=== PATIENT | female | born 1980 | race Two or more races ===

== ENCOUNTER → 2017-03-13 | Outpatient (CLI) | payer BC ==
[~2017-03-13] MED LIST: ACET325; CYCL10 PO; HYDACE5325 PO; HYDR1TAB94 PO; NAPR500 PO; NEXPLANON68 MG; Norco 5-325 Ta1 EACH PO
== END ==
LOC: PLD 13:29
DX: R19.09 Other intra-abdominal and pelvic swelling, mass and lump (principal)
CPT/HCPCS: 88108

== ENCOUNTER → 2018-03-11 | Outpatient (CLI) | payer BC ==
[2018-03-11 14:39] LABS: Candida species (DNA Probe) Negative (NEGATIVE); G. vaginalis (DNA Probe) Negative (NEGATIVE); T. vaginalis (DNA Probe) Negative (NEGATIVE)
[2018-03-13 11:08] LABS: CHLAMYDIA TRACHOMATIS, NAA Negative (Negative); NEISSERIA GONORRHOEAE, NAA Negative (Negative)
== END | disposition home or self-care (01) ==
LOC: LAB 10:48 → LAB SHORT 10:48
PROVIDERS: Obstetrics & Gynecology
DX: Z11.3 Encounter for screening for infections with a predominantly sexual mode of transmission (principal); N76.0 Acute vaginitis
CPT/HCPCS: 87480; 87491; 87510; 87591; 87660

== ENCOUNTER 2019-01-02 23:01 | Emergency (ER) | payer BC, SELFPAY ==
[~2019-01-02] VITALS: Ht 157.5 cm; Wt 44.5 kg
[2019-01-02] MEDS ORDERED: PRAM.125 PO (23:33)
== END 2019-01-02 23:48 | disposition home or self-care (01) ==
LOC: ER 23:01
DX: G25.81 Restless legs syndrome (principal); Z85.51 Personal history of malignant neoplasm of bladder; Z87.891 Personal history of nicotine dependence; Z88.5 Allergy status to narcotic agent; Z79.899 Other long term (current) drug therapy
CPT/HCPCS: 99283

== ENCOUNTER 2019-06-01 08:01 | Emergency (ER) | payer BC ==
[~2019-06-01] VITALS: Ht 152.4 cm; Wt 44.5 kg
[~2019-06-01 08:01] MED LIST changes: +PRAM.125 PO
[2019-06-01] MEDS ORDERED: IBUP200 (08:14)
[2019-06-01] MEDS ORDERED: CEPH500 PO (09:35)
== END 2019-06-01 11:43 | disposition home or self-care (01) ==
LOC: ER 08:01
DX: S66.321A Laceration of extensor muscle, fascia and tendon of left index finger at wrist and hand level, initial encounter (principal); F41.8 Other specified anxiety disorders; Z23 Encounter for immunization; Z88.5 Allergy status to narcotic agent; Z87.891 Personal history of nicotine dependence; W45.8XXA Other foreign body or object entering through skin, initial encounter; Y93.G3 Activity, cooking and baking
CPT/HCPCS: 12042; 29125; 90471; 90714; 99282-25

== ENCOUNTER → 2020-12-07 | Outpatient (CLI) | payer BC ==
[~2020-12-07] MED LIST changes: +CEPH500 PO; +IBUP200
[2020-12-08 17:10] LABS: HPV 16 Negative (Negative); HPV 18 Negative (Negative); HPV OTHER HR TYPES Negative (Negative)
== END ==
LOC: LAB SHORT 12:15 → LAB 12:15
PROVIDERS: Registered Nurse Community Health
DX: Z12.4 Encounter for screening for malignant neoplasm of cervix (principal)
CPT/HCPCS: 87624; G0123

== ENCOUNTER → 2021-01-18 | Outpatient (CLI) | payer BC ==
[2021-01-18 19:50] LABS: BASOPHILS ABSOLUTE AUTO 0.03 K/mm3 (0.00-0.23); BASOPHILS PERCENT AUTO 0 % (0-2); EOSINOPHILS ABSOLUTE AUTO 0.03 K/mm3 (0.00-0.68); EOSINOPHILS PERCENT AUTO 0 % (0-6); Hematocrit 40.1 % (33.0-51.0); Hemoglobin 13.2 g/dL (11.5-16.0); IMMATURE GRAN ABSOLUTE AUTO 0.03 K/mm3 (0.00-0.10); IMMATURE GRAN PERCENT AUTO 0 % (0-1); LYMPHOCYTES ABSOLUTE AUTO 2.61 K/mm3 (0.84-5.20); LYMPHOCYTES PERCENT AUTO 37 % (21-46); MONOCYTES PERCENT AUTO 7 % (4-13); Mean Corpuscular HGB 30.1 pg (26.0-34.0); Mean Corpuscular HGB Conc 32.9 g/dL (31.5-36.5); Mean Corpuscular Volume 92 fL (80-100); Mean Platelet Volume 12.3 fL (9.1-12.4); NEUTROPHILS ABSOLUTE AUTO 3.85 K/mm3 (1.96-9.15); NEUTROPHILS PERCENT AUTO 55 % (41-73); Platelet Count 180 K/mm3 (150-400); RDW Coefficient Variation 12.9 % (11.7-14.2); RDW Standard Deviation 43.1 fL (35.1-46.3); Red Blood Cell Count 4.38 M/mm3 (3.80-5.20); White Blood Cell Count 7.05 K/mm3 (4.00-11.30)
== END ==
LOC: LAB SHORT 18:57 → LAB 18:57
PROVIDERS: Nurse Practitioner
DX: N93.9 Abnormal uterine and vaginal bleeding, unspecified (principal); Z88.5 Allergy status to narcotic agent
CPT/HCPCS: 85025

== ENCOUNTER → 2021-12-19 | Outpatient (CLI) | payer OTHER ==
[2021-12-21 17:11] LABS: HPV 16 Negative (Negative); HPV 18 Negative (Negative); HPV OTHER HR TYPES Negative (Negative)
== END | disposition home or self-care (01) ==
LOC: LAB SHORT 13:17 → LAB 13:17
PROVIDERS: Registered Nurse Community Health
DX: Z12.4 Encounter for screening for malignant neoplasm of cervix (principal)
CPT/HCPCS: 87624; G0123

== ENCOUNTER 2022-07-14 08:32 | Day surgery (SDC) | payer OTHER ==
[~2022-07-14] VITALS: Ht 142.2 cm; Wt 52.0 kg
[2022-07-14] VITALS (9 sets, daily range): BP systolic 114–133; BP diastolic 72–91
--- NOTE | 2022-07-14 10:16 | NUR ---
Ambulatory in Day Surgery. Pre-Op teaching done. Pt verbalizes understanding. Patient confirms NPO status and agrees with scheduled surgery. Lungs clear T/O to Auscultation. Patient States Post-Procedure ride home has been arranged. NEUROPSYCHIATRIC AIDE PHONE UTILIZED THOUGHOUT ADMISSION; NEUROPSYCHIATRIC AIDE ID # [id number]. PT CALM & COOPERATIVE, DENIES NEEDS AT THIS TIME.
--- NOTE | 2022-07-14 13:53 | NUR ---
DISCHARGE NOTE PT A&OX4, VSS, BREATHING RA, SLIGHT CRAMPING IN ABDOMEN, PO PAIN PILLS GIVEN. SCANT AMOUNT OF BLOODY VAGINAL DRAINAGE, LAP SITES TO ABDOMEN ARE CDI. DISCHARGE INSTRUCTIONS GIVEN IN [place] AND [place], PT VERBALIZED UNDERSTANDING. PT NOT DISCHARGED WITH RX FOR AT HOME, PT COMMUNICATED SHE ALREADY HAS SOME PROVIDED BY DR NOLAND AT HOME. PT DRESSED INDEPENDENTLY C RN AT BEDSIDE. Discharge instructions reviewed with patient. Patient verbalizes understanding. Copy given to patient to take home. Dressing to procedure site clean, dry, intact with no visible drainage, swelling, erythema or bruising noted. Discharged via wheelchair to private car for ride home.
== END 2022-07-14 13:50 | disposition home or self-care (01) ==
LOC: ORSCMMR 08:32 → ORD 10:00 → ORSCMMR 10:00
PROVIDERS: Obstetrics & Gynecology
PROC: 0UT7FZZ Resection of Bilateral Fallopian Tubes, Via Natural or Artificial Opening With Percutaneous Endoscopic Assistance (ICD-10-PCS; principal; 2022-07-14 10:00)
DX: Z30.2 Encounter for sterilization (principal)
CPT/HCPCS: 84702; 88302; A9270; J0330; J0690; J1100; J1885; J2250; J2405; J2704; J2795; J3010; J7120

== ENCOUNTER 2023-01-19 05:45 | Day surgery (SDC) | payer OTHER ==
[2023-01-17 15:46] LABS: BASOPHILS ABSOLUTE AUTO 0.02 K/mm3 (0.00-0.23); BASOPHILS PERCENT AUTO 1 % (0-2); EOSINOPHILS PERCENT AUTO 2 % (0-6); Hematocrit 36.6 % (33.0-51.0); Hemoglobin 12.4 g/dL (11.5-16.0); IMMATURE GRAN ABSOLUTE AUTO 0.01 K/mm3 (0.00-0.10); IMMATURE GRAN PERCENT AUTO 0 % (0-1); LYMPHOCYTES ABSOLUTE AUTO 1.27 K/mm3 (0.84-5.20); LYMPHOCYTES PERCENT AUTO 29 % (21-46); MONOCYTES ABSOLUTE AUTO 0.59 K/mm3 (0.16-1.47); MONOCYTES PERCENT AUTO 14 % (4-13); Mean Corpuscular HGB 30.6 pg (26.0-34.0); Mean Corpuscular HGB Conc 33.9 g/dL (31.5-36.5); Mean Corpuscular Volume 90 fL (80-100); Mean Platelet Volume 12.1 fL (9.1-12.4); NEUTROPHILS ABSOLUTE AUTO 2.38 K/mm3 (1.96-9.15); NEUTROPHILS PERCENT AUTO 54 % (41-73); Platelet Count 241 K/mm3 (150-400); RDW Coefficient Variation 13.3 % (11.7-14.2); RDW Standard Deviation 43.9 fL (35.1-46.3); Red Blood Cell Count 4.05 M/mm3 (3.80-5.20); White Blood Cell Count 4.37 K/mm3 (4.00-11.30)
[2023-01-19] VITALS (19 sets, daily range): BP systolic 111–151; BP diastolic 71–98
[~2023-01-19] VITALS: Ht 147.3 cm; Wt 55.9 kg
--- NOTE | 2023-01-19 06:46 | NUR ---
Ambulatory in Day Surgery History, Chart, Medications and Allergies reviewed before start of procedure.Pt speaks [place]ian as second language. Pt requested that her friend Jhonny assist with the admission process. Authorization for medical information signed by pt. Lungs clear T/O to Auscultation.Pt reports nasal congestion and mild cough over the past couple of days. Pt is afebrile and vs WDL.Patient reports completing Chlorhexadine shower X2 prior to admission to hospital.Surgical site prepped with 2% Chlorhexidine cloth wipe. Patient States Post-Procedure ride home has been arranged.
--- NOTE | 2023-01-19 11:39 | NUR ---
01/19/[address] INJECTED 25ML OF BUPIVACAINE 0.5% W/EPI AT 1000 TO OPSITE.
--- NOTE | 2023-01-19 17:42 | NUR ---
POST OP: REPORT RECEIVED FROM [employer] MANAGERPAULIE CHAMBERS. PT TO UNIT AT ABOUT 1120. PT IS A/O, VSS. SURGICAL SITES WNL. NO BLEED NOTED AT MEHRDAD PAD. PT ABLE TO TRANSFER SELF FROM GURNEY TO BED. PT REPORTS PAIN TOLERABLE WHEN SHE IS AT REST. PT ORIENTED TO ROOM AND CALL LIGHT. DENIES ANY SMOKING OR IGNITION SOURCES. PT FAMILY AT BEDSIDE. PT INSTRUCTED TO CALL STAFF IF NEEDS TO GET OOB, PT VERBALZIED UNDERSTANDING. CALL LIGHT IN REACH.
--- NOTE | 2023-01-19 17:47 | NUR ---
SUMMARY: PT HAS DONE WELL POST OP, A/O, VSS. PAIN APPEARS TO BE MANAGED WITH 2 OXY AND 0.5 DILAUDID FOR BREAK THROUGH. PT ABLE TO AMBULATE IN ROOM AND SIT IN CHAIR FOR A LITTLE. OSVALDO MEMBRENO'D AT ABOUT 1700, AWAITING VOID. PT ABLE TO EAT DINNER. ABD BINDER IN PLACE, INCISIONS WNL.
[2023-01-20 04:14] VITALS: BP 120/72
[2023-01-20 04:39] LABS: BASOPHILS ABSOLUTE AUTO 0.02 K/mm3 (0.00-0.23); BASOPHILS PERCENT AUTO 0 % (0-2); EOSINOPHILS ABSOLUTE AUTO 0.01 K/mm3 (0.00-0.68); EOSINOPHILS PERCENT AUTO 0 % (0-6); Hematocrit 33.7 % (33.0-51.0); Hemoglobin 11.3 g/dL (11.5-16.0); IMMATURE GRAN ABSOLUTE AUTO 0.04 K/mm3 (0.00-0.10); IMMATURE GRAN PERCENT AUTO 0 % (0-1); LYMPHOCYTES ABSOLUTE AUTO 1.75 K/mm3 (0.84-5.20); LYMPHOCYTES PERCENT AUTO 18 % (21-46); MONOCYTES ABSOLUTE AUTO 0.92 K/mm3 (0.16-1.47); MONOCYTES PERCENT AUTO 9 % (4-13); Mean Corpuscular HGB 30.3 pg (26.0-34.0); Mean Corpuscular HGB Conc 33.5 g/dL (31.5-36.5); Mean Corpuscular Volume 90 fL (80-100); Mean Platelet Volume 11.7 fL (9.1-12.4); NEUTROPHILS ABSOLUTE AUTO 7.07 K/mm3 (1.96-9.15); NEUTROPHILS PERCENT AUTO 72 % (41-73); Platelet Count 242 K/mm3 (150-400); RDW Coefficient Variation 13.2 % (11.7-14.2); RDW Standard Deviation 43.8 fL (35.1-46.3); Red Blood Cell Count 3.73 M/mm3 (3.80-5.20); White Blood Cell Count 9.81 K/mm3 (4.00-11.30)
--- NOTE | 2023-01-20 05:07 | NUR ---
SHIFT SUMMARY NOC. PT POD 1 FOR LAP HYSTERECTOMY. PT'S 4 LAP SITES ARE C/D/I. PT HAS HAD 2 VOMIT EPISODES THIS SHIFT, SX IMPROVED WITH ZOFRAN. PT AMBULATING IN THE ROOM. PT HAS BEEN PAINFUL THIS SHIFT 8/10 PAIN. PT REPORTS PERCOCET INCREASES HER NAUSEA. MEDICATED WITH DILAUDID X2 WITH RELIEF. PT VOIDING URINE. PT RESTED WITH EYES CLOSED AND CALL LIGHT IN REACH.
[2023-01-20 07:04] VITALS: BP 100/65
[2023-01-20] MEDS ORDERED: ESTRADIOL1 MG PO (14:12)
[2023-01-20] MEDS ORDERED: HYDMOR2 PO (14:13)
[2023-01-20] MEDS ORDERED: IBUP400 PO (14:14)
[2023-01-20] MEDS ORDERED: PROM25 PO (14:15)
[2023-01-20] MEDS ORDERED: SIME80CH PO (14:15)
[2023-01-20 14:26] VITALS: BP 138/83
--- NOTE | 2023-01-20 14:46 | NUR ---
discharged PT TOLERATED PO PAIN MEDS AND REPORTED RELIEF. VSS. TOLERATING PO AND VOIDING. DC'D HOME. REVIEWED DC INSTRUCTIONS W/PT; VERBALIZED UNDERSTANDING. IV DC'D, CATHETER INTACT. VSS. PT LEFT UNIT IN WC W/POSSESSIONS AND DC PAPERWORK IN HAND, ACCOMPANIED BY FAMILY AND FRIENDS TO RIDE WAITING OUTSIDE.
== END 2023-01-20 14:37 | disposition home or self-care (01) ==
LOC: ORSCMMR 05:45 → ORD 07:30 → ORSCMMR 07:30 → SURS 11:01 → ORSCMMR 01-20 14:37
PROVIDERS: Obstetrics & Gynecology
PROC: 0U5F4ZZ Destruction of Cul-de-sac, Percutaneous Endoscopic Approach (ICD-10-PCS; principal; 2023-01-19 07:30)
PROC: 0UT9FZZ Resection of Uterus, Via Natural or Artificial Opening With Percutaneous Endoscopic Assistance (ICD-10-PCS; principal; 2023-01-19 07:30)
PROC: 0UT2FZZ Resection of Bilateral Ovaries, Via Natural or Artificial Opening With Percutaneous Endoscopic Assistance (ICD-10-PCS; principal; 2023-01-19 07:30)
DX: N92.1 Excessive and frequent menstruation with irregular cycle (principal); N80.9 Endometriosis, unspecified; N83.12 Corpus luteum cyst of left ovary; N94.6 Dysmenorrhea, unspecified; N94.10 Unspecified dyspareunia; R10.2 Pelvic and perineal pain; N80.03 Adenomyosis of the uterus
CPT/HCPCS: 36415; 85025; 86850; 86900; 86901; 88305; 88307; 94762; A9270; J0690; J1100; J1170; J1885; J2250; J2405; J2704; J3010; J7050; J7120

== ENCOUNTER → 2024-01-09 | Outpatient (CLI) | payer OTHER ==
[~2024-01-09] MED LIST changes: +ESTRADIOL1 MG PO; +HYDMOR2 PO; +IBUP400 PO; +LIDOCAINE1 EACH TOP; +PROM25 PO; +Robaxin750 MG PO; +SIME80CH PO
[2024-01-09 18:41] LABS: CHOL/HDL RATIO 2.8; Cholesterol 243 mg/dL (50-200); HDL Cholesterol 88 mg/dL (>39); LDL/HDL RATIO 1.3; Low Density Lipoprotein Chol 113 mg/dL (0-110); Triglycerides 212 mg/dL (30-160); Very Low Density Lipoprot Chol 42 mg/dL (6-32)
[2024-01-11 10:02] LABS: HEPATITIS C AB CIA INTERP Negative (Negative); HEPATITIS C ANTIBODY CIA INDEX 0.32 IV
== END ==
LOC: LAB SHORT 13:16 → LAB 13:16
PROVIDERS: Family Medicine
DX: Z13.6 Encounter for screening for cardiovascular disorders (principal); Z11.59 Encounter for screening for other viral diseases
CPT/HCPCS: 80061; 86803

== ENCOUNTER 2024-07-08 14:13 | Emergency (ER) | payer OTHER ==
[~2024-07-08] VITALS: Ht 152.4 cm; Wt 58.1 kg
[2024-07-08 14:27] VITALS: BP 136/103
[2024-07-08 14:49] LABS: BASOPHILS ABSOLUTE AUTO 0.02 K/mm3 (0.00-0.23); BASOPHILS PERCENT AUTO 0 % (0-2); EOSINOPHILS ABSOLUTE AUTO 0.04 K/mm3 (0.00-0.68); EOSINOPHILS PERCENT AUTO 1 % (0-6); Hematocrit 40.8 % (33.0-51.0); Hemoglobin 13.3 g/dL (11.5-16.0); IMMATURE GRAN ABSOLUTE AUTO 0.01 K/mm3 (0.00-0.10); IMMATURE GRAN PERCENT AUTO 0 % (0-1); LYMPHOCYTES ABSOLUTE AUTO 2.18 K/mm3 (0.84-5.20); LYMPHOCYTES PERCENT AUTO 40 % (21-46); MONOCYTES PERCENT AUTO 11 % (4-13); Mean Corpuscular HGB Conc 32.6 g/dL (31.5-36.5); Mean Corpuscular Volume 92 fL (80-100); Mean Platelet Volume 11.1 fL (9.1-12.4); NEUTROPHILS ABSOLUTE AUTO 2.57 K/mm3 (1.96-9.15); NEUTROPHILS PERCENT AUTO 47 % (41-73); Platelet Count 247 K/mm3 (150-400); RDW Coefficient Variation 14.1 % (11.7-14.2); RDW Standard Deviation 47.8 fL (35.1-46.3); Red Blood Cell Count 4.43 M/mm3 (3.80-5.20); White Blood Cell Count 5.42 K/mm3 (4.00-11.30)
[2024-07-08 15:32] LABS: Albumin, Blood 4.2 g/dL (3.4-5.0); Bilirubin, Total 0.2 mg/dL (0.1-1.0); Bun/Creatinine Ratio 15.9 (12.0-20.0); Calcium, Blood 8.6 mg/dL (8.5-10.1); Creatinine, Blood 0.63 mg/dL (0.40-1.00); Globulin, Blood 4.1 g/dL (2.2-4.0); Potassium, Blood 3.4 mmol/L (3.5-5.5); Total Protein, Blood 8.3 g/dL (6.4-8.2)
[2024-07-08 16:14] LABS: Source, Urine Clean Catch
[2024-07-08 16:19] LABS: Bilirubin, Urine Neg (Neg); Blood, Urine Neg (Neg); Color, Urine Yellow (P-Yellow); Glucose Qualitative, Urine Neg (Neg); Ketones, Urine Neg (Neg); Leukocyte Esterase, Urine Neg (Neg); Nitrite, Urine Neg (Neg); Protein, Urine Neg (Neg); Urobilinogen, Urine NORM (Normal)
[2024-07-08 16:27] LABS: Appearance, Urine Clear (Clear)
[2024-07-08] MEDS ORDERED: Pyridium100 MG PO (17:02)
== END 2024-07-08 17:06 | disposition home or self-care (01) ==
LOC: ER 14:13
PROVIDERS: Emergency Medicine
DX: R30.0 Dysuria (principal); R39.11 Hesitancy of micturition; Z85.51 Personal history of malignant neoplasm of bladder; Z90.6 Acquired absence of other parts of urinary tract; Z90.710 Acquired absence of both cervix and uterus
CPT/HCPCS: 76770; 80053; 81003; 81025; 85025; 99284-25